=== PATIENT | male | born 1985 | race Two or more races ===

== ENCOUNTER 2017-10-13 07:46 | Emergency (ER) | payer SELFPAY ==
[2017-10-13 07:49] VITALS: BP 145/67; BMI 19.1
[2017-10-13] MEDS ORDERED: NS 1000 ML 1,000 ML IV ONE (08:35)
[2017-10-13] MEDS ORDERED: ZOFRAN INJ 4 MG VIAL IVP ONE (08:35)
--- NOTE | 2017-10-13 08:35 | DR.ABDMALE ---
HPI - Time seen Time seen: 08:20 - PCP Primary Care Physician: NFD - Complaint Chief Complaint Doctors Comments: Patient admits to nausea and diahreea for 3 days. Denies headache or fever. Chief Complaint:: PT. C/O ABDOMINAL PAIN, N/V/D WITH AN ONSET OF FRIDAY. PT. ALSO C/O FEVER AND CHILLS. PT. STATES PEST CONTROL CAME AND SPRAYED HIS HOUSE ON FRIDAY FOR ROACHES AND BUGS AND EVER SINCE THEN, HE HASN'T FELT GOOD. - Mode of arrival Mode of Arrival: Ambulatory - Timing Onset of Chief Complaint: 10/10/17 PMH - PMH Past Medical History: No Past Surgical History: Yes Surgical History: Other Past Surgical History Comment: HAND - Family History History of Family Medical Conditions: No - Social History Does patient currently use any type of tobacco product: Yes Have you used tobacco products in the last 12 months: Yes Type of Tobacco Use: Cigarettes Does any household member use tobacco: No Alcohol Use: None Do you use any recreational Drugs:: No Lives With: Spouse Lives Where: Home - infectious screening In the last 2 months have you had wt loss of >10#?: NO Have you had fever, night sweats or hemotysis?: No Have you traveled outside the country in the last 6 months?: No Isolation: Standard ROS - Review of Systems Eyes: No Symptoms Reported ENTM: No Symptoms Reported Respiratoy: No Symptoms Reported Cardiovascular: No Symptoms Reported Gastrointestinal/Abdominal: No Symptoms Reported Genitourinary: No Symptoms Reported Neurological: No Symptoms Reported Musculoskeletal: No Symptoms Reported Integumentary: No Symptoms Reported Hematologic/Lymphatic: No Symptoms Reported Endocrine: No Symptoms Reported Psychiatric: No Symptoms Reported All Other Systems: Reviewed and Negative PE - Vital Signs Vital Signs: Temp Pulse Resp BP BP Pulse Ox 10/13/17 07:46 97.7 F 58 L 17 145/67 96 12/09/12 12:17 132/78 132/78 - General Limitations: No Limitations General Appearance: Alert - Head Head Exam: Normal Inspection, Atraumatic - Eyes Eye exam: Normal Appearance, PERRL, EOMI - ENT ENT Exam: Normal Exam - Neck Neck Exam: Normal Inspection, Full ROM - Chest Chest Inspection: Normal Inspection - Respiratory Respiratory Exam: Normal Lung Sounds Bilat Respiratory Exam: Bilateral Clear to Auscultation - Cardiovascular Cardiovascular Exam: Regular Rate, Normal Rhythm - Abdominal Exam Abdominal Exam: Normal Inspection, Normal Bowel Sounds Abdominal Tenderness: negative: RUQ, RLQ, LUQ, LLQ, Epigastrium, Suprapubic, Diffuse, Mild, Moderate, Severe, Other - Rectal Rectal Exam: Deferred - Back Back Exam: Normal Inspection, Full ROM - Extremeties Extremities Exam: Normal Inspection, Full ROM - Exam: Male: negative: Normal Inspection, Deferred - Neurologic Neurological Exam: Alert, Oriented X3, CN II-XII Intact - Psychiatric Psychiatric Exam: Normal Affect, Normal Mood - Skin Skin Exam: Warm, Dry - Diagnosis Discharge Problem: Acute viral disease - Discharge Plan Condition: Stable - Follow ups/Referrals Follow ups/Referrals: NFD,None [Primary Care Provider] - 3 days - Instructions
[2017-10-13] MEDS ORDERED: NS 1000 ML 1,000 ML ONE (08:40)
== END 2017-10-13 09:24 | disposition home or self-care (01) ==
LOC: ER 08:01
DX: R10.84 Generalized abdominal pain (principal); B97.89 Other viral agents as the cause of diseases classified elsewhere
CPT/HCPCS: 96365; 96374; 99282; 99283; A4222